=== PATIENT | male | born 1975 | race African-American/Black ===

== ENCOUNTER 2020-11-01 21:46 | Inpatient (IN) | payer MEDICAID ==
[~2020-11-01] VITALS: Ht 167.6 cm; Wt 73.0 kg
[2020-11-01] MEDS ORDERED: ACETAMINOPHEN 325MG TABLET PO STA (22:58)
[2020-11-01] MEDS ORDERED: SODIUM CHLORIDE 0.9% 1,000 ML IV ONE (23:00)
[2020-11-01] MEDS ORDERED: AZITHROMYCIN 500 MG in DEXT 5% WATER 250 ML IV ONE (23:00)
[2020-11-01] MEDS ORDERED: CEFTRIAXONE 1 G PREMIX 50 ML IV ONE (23:00)
[2020-11-01 23:49] LABS: HEMATOCRIT. 36.5 % (42.0-52.0); HEMOGLOBIN. 12.3 g/dL (14.0-18.0); MEAN CORPUSCULAR VOLUME 80.3 fL (80.0-94.0); MEAN PLATELET VOLUME 9.2 fl (7.4-10.4); PLATELET 222 x1000/uL (130-400); RED BLOOD CELL COUNT 4.54 mill/uL (4.7-6.1)
[2020-11-01 23:57] LABS: CHLORIDE 88 mEq/L (98-107)
[2020-11-02] MEDS ORDERED: KETOROLAC 30MG/ML VIAL IV ONE
[2020-11-02 00:01] LABS: ETHANOL BLOOD < 10 mg/dL
[2020-11-02] MEDS ORDERED: MIDAZOLAM HCL 2 MG/2 ML VIAL IV ONE (00:30)
[2020-11-02] MEDS ORDERED: MORPHINE SULFATE 4 MG/ML CPJ (NOT FOR IM USE) IV ONE (00:30)
[2020-11-02] MEDS ORDERED: SODIUM CHLORIDE 0.9% 1000ML BAG (SEPSIS BOLUS) IV ONE (00:45)
[2020-11-02] MEDS ORDERED: PIPERACILLIN/TAZ 3.375G PREMIX 50 ML IV ONE (00:45)
[2020-11-02 01:08] LABS: PLATELET ESTIMATE NORMAL
[2020-11-02] MEDS ORDERED: VANCOMYCIN 1 G PREMIX 200 ML IV NR (01:30)
[2020-11-02 03:54] LABS: *BARBITURATES SCREEN URINE NEGATIVE (NEGATIVE); *BENZODIAZEPINES SCREEN URINE PRESUMTIVE POSITIVE (NEGATIVE); *COCAINE SCREEN URINE NEGATIVE (NEGATIVE); CANNABINOID URINE SCREEN PRESUMTIVE POSITIVE (NEGATIVE); METHADONE URINE SCREEN NEGATIVE (NEGATIVE); OPIATES URINE SCREEN PRESUMTIVE POSITIVE (NEGATIVE)
[2020-11-02 03:55] LABS: *AMPHETAMINES SCREEN URINE PRESUMTIVE POSITIVE (NEGATIVE); PHENCYCLIDINE URINE SCREEN NEGATIVE (NEGATIVE)
[2020-11-02] MEDS ORDERED: IOHEXOL-350 100 ML BOTTLE ONE (06:56)
[2020-11-02] MEDS ORDERED: MORPHINE SULFATE 2 MG/ML CPJ (NOT FOR IM USE) IV SCH (08:15)
[2020-11-02] MEDS ORDERED: ONDANSETRON HCL 4MG/2ML INJ IV PRN (10:00)
[2020-11-02] MEDS ORDERED: ALBUTEROL 6.7GM HFA INHALER ORI PRN (10:00)
[2020-11-02] MEDS ORDERED: POTASSIUM CHLORIDE 20MEQ TABLET SR PO NR (10:30)
[2020-11-02] MEDS: ENOXAPARIN 40MG/0.4ML SYR SUBCUT SCH (13:00)
[2020-11-02] MEDS: PIPERACILLIN/TAZOBACTAM 3.375 G in DEXTROSE 5% WATER 50 ML IV SCH ×2 (13:05→17:36)
[2020-11-02] MEDS ORDERED: ALBUTEROL (0.083%) 2.5MG/3ML NEB INH PRN (15:10)
[2020-11-02] MEDS ORDERED: NALOXONE HCL 0.4MG/ML VIAL IV PRN (15:15)
[2020-11-02] MEDS: HYDROCODONE/ACETAMINOPHEN 5/325MG TABLET PO PRN ×2 (15:16→20:43)
[2020-11-02 17:00] VITALS: BP 142/103
[2020-11-02] MEDS: ZOLPIDEM TARTRATE 5MG TABLET PO PRN ×2 (17:36→20:43)
[2020-11-02 18:00] VITALS: BP 142/103
[2020-11-02] MEDS ORDERED: IPRATROPIUM/ALBUTEROL 0.5-3(2.5)MG/3ML NEB HHN PRN (19:15)
[2020-11-02] MEDS: GUAIFENESIN-DM 200MG-20MG/10ML UDC PO PRN (20:44)
[2020-11-03] VITALS: BP 138/95
[2020-11-03] MEDS ORDERED: IPRATROPIUM/ALBUTEROL 0.5-3(2.5)MG/3ML NEB HHN SCH
[2020-11-03] MEDS: PIPERACILLIN/TAZOBACTAM 3.375 G in DEXTROSE 5% WATER 50 ML IV SCH ×2 (00:32→06:08)
[2020-11-03] MEDS: GUAIFENESIN-DM 200MG-20MG/10ML UDC PO PRN (02:25)
[2020-11-03] MEDS: HYDROCODONE/ACETAMINOPHEN 5/325MG TABLET PO PRN (02:25)
[2020-11-03] MEDS ORDERED: GUAIFENESIN/CODEINE 100-10MG/5ML UDC PO PRN (03:15)
[2020-11-03] MEDS ORDERED: GUAIFENESIN/CODEINE 200-20MG/10ML UDC PO PRN (03:30)
[2020-11-03 04:00] VITALS: BP 142/90
[2020-11-03] MEDS: ENOXAPARIN 40MG/0.4ML SYR SUBCUT SCH (09:09)
[2020-11-03 09:36] LABS: HEMOGLOBIN. 11.7 g/dL (14.0-18.0); MEAN CORPUSCULAR HEMOGLOBIN 26.9 pg (28.0-32.0); MEAN CORPUSCULAR VOLUME 80.4 fL (80.0-94.0); MEAN PLATELET VOLUME 9.3 fl (7.4-10.4); PLATELET 300 x1000/uL (130-400); RED BLOOD CELL COUNT 4.35 mill/uL (4.7-6.1)
[2020-11-03 09:45] LABS: CHLORIDE 95 mEq/L (98-107)
[2020-11-03 10:20] LABS: PLATELET ESTIMATE NORMAL
== END 2020-11-03 10:00 | disposition left against medical advice (07) | DRG 720 ==
LOC: ER 22:24 → MICUSO 11-02 01:51 → EDBEDREQDT 11-02 02:02 → EDBEDREQSVC 11-02 02:02 → EDBEDREQ 11-02 02:02 → EDBEDREQTM 11-02 02:02 → 7EST 11-02 15:52
PROVIDERS: ADMIT Internal Medicine; ATTEND Internal Medicine
DX: A41.9 Sepsis, unspecified organism (principal); J96.01 Acute respiratory failure with hypoxia; E43 Unspecified severe protein-calorie malnutrition; J18.9 Pneumonia, unspecified organism; E87.1 Hypo-osmolality and hyponatremia; E87.8 Other disorders of electrolyte and fluid balance, not elsewhere classified; D64.9 Anemia, unspecified; Z60.2 Problems related to living alone; E87.6 Hypokalemia; F11.10 Opioid abuse, uncomplicated; F12.10 Cannabis abuse, uncomplicated; Z20.822 Contact with and (suspected) exposure to COVID-19; F15.10 Other stimulant abuse, uncomplicated; F17.210 Nicotine dependence, cigarettes, uncomplicated; I10 Essential (primary) hypertension; Z82.49 Family history of ischemic heart disease and other diseases of the circulatory system; Z71.51 Drug abuse counseling and surveillance of drug abuser; Z68.26 Body mass index [BMI] 26.0-26.9, adult
CPT/HCPCS: 36415; 71045; 71275; 80048; 80053; 80305; 80320; 83605; 83880; 84484; 85025; 85379; 87070; 87077; 87186; 87426; 93005; 94640; 99291; J0456; J0696; J1650; J1885; J2250; J2270; J2543; J3370; J7030; J7040; J7060; Q9967; U0003; U0005; G0480

== ENCOUNTER 2021-09-01 13:19 | Emergency (ER) | payer MEDICAID ==
[~2021-09-01] VITALS: Ht 175.3 cm; Wt 73.0 kg
[2021-09-01 13:28] VITALS: BP 146/97
== END 2021-09-01 18:42 ==
LOC: ER 13:19
DX: Z53.21 Procedure and treatment not carried out due to patient leaving prior to being seen by health care provider (principal)

== ENCOUNTER 2025-01-25 13:54 | Emergency (ER) | payer MEDICAID ==
[~2025-01-25] VITALS: Ht 180.3 cm; Wt 70.0 kg
[2025-01-25 14:00] VITALS: O2SAT 98
[2025-01-25 20:14] VITALS: BP 141/93; PULSE 95; RESP 14; TEMP 37.2; O2SAT 100
== END 2025-01-25 20:15 | disposition home or self-care (01) ==
LOC: ER 14:33
DX: F15.10 Other stimulant abuse, uncomplicated (principal); I10 Essential (primary) hypertension; F11.99 Opioid use, unspecified with unspecified opioid-induced disorder; F12.90 Cannabis use, unspecified, uncomplicated; Z59.00 Homelessness unspecified; Z79.899 Other long term (current) drug therapy
CPT/HCPCS: 99283